=== PATIENT | male | born 1975 | race Caucasian/White ===

== ENCOUNTER 2017-06-14 15:15 | Outpatient (CLI) | payer OTHER ==
[2017-06-14 17:42] LABS: #Basophils 0.1 thou/uL (0.0-0.2); #Eosinphils 0.3 thou/uL (0.0-0.7); #Monocytes 0.9 thou/uL (0.11-0.59); #Neutrophils 6.1 thou/uL (1.40-6.50); %Basophils 0.9 % (0.0-1.0); %Lymphocytes 21.6 % (21.0-51.0); %Monocytes 9.4 % (0.0-10.0); Hematocrit 46.4 % (42.0-52.0); Mean Platelet Volume 7.2 fL (7.4-10.4); Red Blood Cell (RBC) Count 5.08 mill/uL (4.70-6.10); White Blood Cell (WBC) Count 9.4 thou/uL (4.8-10.8)
[2017-06-14 18:07] LABS: Anion Gap 14 mmol/L (10-20); BUN (Urea Nitrogen) 20 mg/dL (8.9-20.6); Calc. Creatinine Clearance 0 mL/min (70-130); Calcium 9.2 mg/dL (7.8-10.44); Carbon Dioxide 26 mmol/L (22-29); Chloride 105 mmol/L (98-107); Estimated GFR-MDRD 64
== END 2017-06-14 15:16 | disposition home or self-care (01) ==
LOC: LABBT 15:15
PROVIDERS: ATTEND Orthopaedic Surgery Hand Surgery
DX: Z01.818 Encounter for other preprocedural examination (principal); S62.610A Displaced fracture of proximal phalanx of right index finger, initial encounter for closed fracture
CPT/HCPCS: 80048; 85025; 93005; 93010

== ENCOUNTER 2017-06-16 10:25 | Day surgery (SDC) | payer OTHER ==
[2017-06-14 16:48] VITALS: BMI 35.5
[2017-06-16] MEDS ORDERED: Midazolam HCl 2 mg/2 ml Vial ONE ×2 (11:41→11:51)
[2017-06-16] MEDS ORDERED: Bacitracin Zinc Ointment 30 gm TUBE ONE (11:50)
[2017-06-16] MEDS ORDERED: Bupivacaine PF 0.5% 30 ML VIAL ONE (11:50)
[2017-06-16] MEDS ORDERED: Sodium Chloride 0.9% 10 ML ONE (11:50)
[2017-06-16] MEDS ORDERED: Fentanyl 100 MCG/2 ML VIAL ONE ×2 (11:51→11:52)
--- NOTE | 2017-06-16 15:13 | RAD ---
RIGHT INDEX FINGER: Date: 06/16/17 HISTORY: Intraoperative films. FINDINGS: Open reduction and internal fixation of a proximal phalanx fracture with plate and screws is noted. Bony alignment appears satisfactory. IMPRESSION: Open reduction and internal fixation of proximal phalanx index finger fracture. POS: [facility]
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
== END 2017-06-16 16:30 ==
LOC: SDC 10:25
PROVIDERS: ATTEND Orthopaedic Surgery Hand Surgery
PROC: 0PST04Z Reposition Right Finger Phalanx with Internal Fixation Device, Open Approach (ICD-10-PCS; principal; 2017-06-16)
DX: S62.611A Displaced fracture of proximal phalanx of left index finger, initial encounter for closed fracture (principal); I10 Essential (primary) hypertension; Z79.899 Other long term (current) drug therapy; Z88.5 Allergy status to narcotic agent; W31.89XA Contact with other specified machinery, initial encounter; Y92.69 Other specified industrial and construction area as the place of occurrence of the external cause; Y99.0 Civilian activity done for income or pay
CPT/HCPCS: 76001; A4216; C1713; J0131; J2250; J3010; J3490; S0020

== ENCOUNTER 2017-10-11 07:14 | Emergency (ER) | payer OTHER ==
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
[2017-10-11] MEDS ORDERED: Lisinopril/Hydrochlorothiazide 20 mg/12.5 mg Tablet PO ONE (09:30)
== END 2017-10-11 09:38 | disposition home or self-care (01) ==
LOC: ERS 07:14
DX: M25.561 Pain in right knee (principal); I10 Essential (primary) hypertension; F17.290 Nicotine dependence, other tobacco product, uncomplicated; F41.9 Anxiety disorder, unspecified; Z79.899 Other long term (current) drug therapy; V43.62XA Car passenger injured in collision with other type car in traffic accident, initial encounter
CPT/HCPCS: 72040

== ENCOUNTER 2018-10-08 12:41 | Outpatient (CLI) | payer BC ==
--- NOTE | 2018-10-08 15:31 | RAD ---
AP AND LATERAL RIGHT CALCANEUS: History: Patient with pain since [place]. FINDINGS: No evidence of calcaneal fractures, subluxations, or bony lesions seen. IMPRESSION: Normal two views right calcaneus. POS: [facility]
--- NOTE | 2018-10-08 16:41 | RAD ---
RADIOGRAPH RIGHT FOOT 3 VIEWS: Date: 10/08/18 HISTORY: 43-year-old male with nontraumatic pain in the right foot. COMPARISON: None. FINDINGS: Mild DJD at first MTP without hallux valgus. Mild DJD at first IP. The rest of the MTP joints, and th e joints of the midfoot and hindfoot, appear normal. Boehler's angle is maintained. No periostitis or destructive osseous lesion. No fracture. IMPRESSION: 1. 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 2. Otherwise negative. POS: [facility]
== END 2018-10-08 12:42 | disposition home or self-care (01) ==
LOC: BICRAD 12:41
PROVIDERS: ATTEND Family Medicine
DX: M25.571 Pain in right ankle and joints of right foot (principal); M79.89 Other specified soft tissue disorders; M19.071 Primary osteoarthritis, right ankle and foot

== ENCOUNTER 2023-03-30 15:36 | Outpatient (CLI) | payer BC | END 2023-03-30 15:37 | disposition home or self-care (01) | LOC: RAD 15:36 | PROVIDERS: ATTEND Family Medicine | DX: M54.2 Cervicalgia (principal); M47.812 Spondylosis without myelopathy or radiculopathy, cervical region; M50.123 Cervical disc disorder at C6-C7 level with radiculopathy; M50.13 Cervical disc disorder with radiculopathy, cervicothoracic region | CPT/HCPCS: 72040 ==

== ENCOUNTER 2023-10-24 10:18 | Outpatient (CLI) | payer BC | END 2023-10-24 10:19 | disposition home or self-care (01) | LOC: SCSRAD 10:18 | PROVIDERS: ATTEND Nurse Practitioner Family | DX: S69.92XA Unspecified injury of left wrist, hand and finger(s), initial encounter (principal) ==